=== PATIENT | female | born 1965 | race Caucasian/White ===

== ENCOUNTER 2019-08-27 14:35 | Outpatient (CLI) | payer BC ==
[2019-08-27] MEDS ORDERED: LEVO100T74 PO (16:08)
[2019-08-27] MEDS ORDERED: LISI10TA2 PO (16:08)
== END 2019-08-27 23:59 | disposition home or self-care (01) ==
LOC: STAR 14:35
PROVIDERS: ATTEND Orthopaedic Surgery
DX: Z02.9 Encounter for administrative examinations, unspecified (principal)

== ENCOUNTER 2019-09-04 07:08 | Day surgery (SDC) | payer BC ==
[2019-08-27 15:54] VITALS: BP 138/81
[~2019-09-04] VITALS: Ht 160 cm; Wt 78.8 kg
[~2019-09-04 07:08] MED LIST: BUPIVACAINE/PF 0.5% ONE; EPINEPHRINE 1 MG/ML, 1ML ONE; LEVO100T74 PO; LIDOCAINE/PF 1%-EPI 1:200K, 30 ML ONE; LISI10TA2 PO
[2019-09-04 07:37] VITALS: BP 134/84
[2019-09-04] MEDS ORDERED: LACTATED RINGERS 1,000 ML IV SCH (07:39)
[2019-09-04 07:48] LABS: HCG UR SG 1.018 (1.003-1.030)
[2019-09-04] MEDS ORDERED: GABAPENTIN 300 MG CAPSULE PO ONE (08:00)
[2019-09-04] MEDS ORDERED: ACETAMINOPHEN 500 MG TABLET PO ONE (08:00)
[2019-09-04] MEDS ORDERED: SCOPOLAMINE PATCH, 1.5MG PATCH.TD72 TD ONE (08:00)
[2019-09-04] MEDS ORDERED: MIDAZOLAM 1 MG/ML, 2ML ONE (08:17)
[2019-09-04] MEDS ORDERED: FENTANYL PF 250 MCG/5ML ONE (08:17)
[2019-09-04] MEDS ORDERED: LISINOPRIL 10 MG TABLET PO SCH (09:00)
[2019-09-04] MEDS ORDERED: LEVOTHYROXINE 100 MCG TABLET PO SCH (09:00)
[2019-09-04] MEDS ORDERED: PROPOFOL 50 ML ONE (09:26)
[2019-09-04] MEDS ORDERED: CEFAZOLIN 1,000 MG ONE (09:31)
[2019-09-04] MEDS ORDERED: ONDANSETRON 2MG/ML, 2ML ONE (09:31)
[2019-09-04] MEDS ORDERED: PROPOFOL 10 MG/ML, 20ML ONE (09:31)
[2019-09-04] MEDS ORDERED: BUPIVACAINE/PF 0.5% ONE (09:31)
[2019-09-04] MEDS ORDERED: KETOROLAC 30 MG/1 ML ONE (09:31)
[2019-09-04] MEDS ORDERED: DEXAMETHASONE 4 MG/ML, 1ML ONE (09:31)
[2019-09-04] MEDS ORDERED: PROMETHAZINE 25 MG/ML, 1ML IV PRN (10:00)
[2019-09-04] MEDS ORDERED: MIDAZOLAM 1 MG/ML, 2ML IV PRN (10:00)
[2019-09-04] MEDS ORDERED: ALBUTEROL/IPRATROPIUM 2.5MG/0.5MG, 3 ML NPPB PRN (10:00)
[2019-09-04] MEDS ORDERED: MEPERIDINE/PF 25MG/ML,1ML IVPush PRN (10:00)
[2019-09-04] MEDS ORDERED: METOPROLOL 1 MG/ML, 5ML IV PRN (10:00)
[2019-09-04] MEDS ORDERED: HYDROmorphone 2 MG/ML, 1ML IVPush PRN (10:00)
[2019-09-04] MEDS ORDERED: FENTANYL PF 100 MCG/2ML IV PRN (10:00)
[2019-09-04] MEDS ORDERED: OXYcodone 5 MG/5 ML ORAL.SOL UDC PO PRN (10:00)
[2019-09-04] MEDS ORDERED: hydrALAzine 20 MG/ML, 1ML IV PRN (10:00)
== END 2019-09-04 12:20 | disposition home or self-care (01) ==
LOC: OUT 07:08
PROVIDERS: ATTEND Orthopaedic Surgery
DX: S83.512A Sprain of anterior cruciate ligament of left knee, initial encounter (principal); S83.212A Bucket-handle tear of medial meniscus, current injury, left knee, initial encounter; M67.52 Plica syndrome, left knee; M65.862 Other synovitis and tenosynovitis, left lower leg; M94.262 Chondromalacia, left knee; I10 Essential (primary) hypertension; E78.5 Hyperlipidemia, unspecified; E07.9 Disorder of thyroid, unspecified; Z72.89 Other problems related to lifestyle; Z79.891 Long term (current) use of opiate analgesic; Z79.890 Hormone replacement therapy; Z79.899 Other long term (current) drug therapy; Z88.1 Allergy status to other antibiotic agents; Z82.61 Family history of arthritis; Z82.49 Family history of ischemic heart disease and other diseases of the circulatory system; X58.XXXA Exposure to other specified factors, initial encounter; Y93.89 Activity, other specified; Y92.89 Other specified places as the place of occurrence of the external cause; Y99.8 Other external cause status
CPT/HCPCS: 29881; 29888; 64447; 81025; C1713; C1762; J0171; J0690; J1100; J1885; J2250; J2405; J2704; J3010; J3490; J7120